=== PATIENT | female | born 1985 | race Two or more races ===

== ENCOUNTER → 2021-06-14 | Outpatient (CLI) | payer BC ==
--- NOTE | 2021-06-15 09:00 | RAD ---
US VENOUS REFLUX History: Reason: NON HEALING WOUND RT LOWER LEG / Spl. Instructions: / History: Comparison: None. Discussion: Multiple longitudinal and transverse high resolution real-time images of the venous system of right l ower extremity were obtained with color and Doppler sampling. Right greater saphenous vein measures 0.7 cm. No evidence of reflux. Right lesser saphenous vein janae ures 0.3 cm. No evidence of reflux. No supervisor rubber covering identified. Impression: 1. No evidence of superficial venous reflux. Electronically signed by: Alexei Roldan DO (06/15/2021 8:58 AM) [id number]
== END ==
LOC: US 12:51
PROVIDERS: ATTEND Preventive Medicine Undersea and Hyperbaric Medicine
DX: L97.819 Non-pressure chronic ulcer of other part of right lower leg with unspecified severity (principal)
CPT/HCPCS: 93970